=== PATIENT | male | born 1950 | race Caucasian/White ===

== ENCOUNTER 2018-06-05 19:51 | Observation (INO) ==
[2018-06-05 20:28] LABS: Basophils # 0.1 K/mm3 (0-0.2); Basophils % 0.6 % (0.1-2.0); Eosinophils # 0.1 K/mm3 (0.0-0.4); Eosinophils % 1.3 % (0.1-12.0); Hematocrit 45.1 % (42.0-52.0); Hemoglobin 15.1 g/dL (14.1-18.0); Lymphocytes # 1.6 K/mm3 (0.7-4.5); Lymphocytes % 20.2 K/mm3 (10-50); Mean Corpuscular HGB Conc 33.5 g/dL (31.8-35.4); Mean Corpuscular Hemoglobin 31.8 pg (27.0-31.2); Mean Corpuscular Volume 94.7 fl (80-94); Mean Platelet Volume 8.7 fl (7.4-10.4); Monocytes # 0.5 K/mm3 (0.1-1.0); Monocytes % 5.5 % (1.7-9.3); Neutrophils # 5.9 K/mm3 (1.8-7.8); Neutrophils % 72.4 % (37.0-80.0); Platelet Count 218 K/mm3 (142-424); Red Blood Count 4.76 M/mm3 (4.60-6.20); Red Cell Distribution Width 13.1 % (11.5-17.5); White Blood Count 8.1 K/mm3 (4.8-10.8)
[2018-06-05 20:32] LABS: Microscopic, Urine URINE MICROSCOPIC (MICROSCOPIC)
[2018-06-05 20:37] LABS: Appearance,Urine CLEAR (Clear); Blood, Urine Negative (Negative); Color,Urine YELLOW (Yellow); Glucose,Urine (UA) Negative (Negative); Ketones,Urine TRACE (Negative); Leukocyte Esterase,Urine Negative (Negative); Protein,Urine 1+ (Negative); Specific Gravity, Urine 1.025 (1.005-1.030)
[2018-06-05 20:41] LABS: Activated Partial Thrombo Time 28.7 seconds (23.6-34.0); INR 0.93 (0.9-1.1); Prothrombin Time 9.6 seconds (9.4-11.8)
[2018-06-05 20:41] LABS: Bilirubin,Urine Negative (Negative)
[2018-06-05 20:58] LABS: Alanine Aminotransferase 18 U/L (12-78); Albumin Level 3.7 gm/dL (3.4-5.0); Alkaline Phosphatase 140 U/L (46-116); Anion Gap 14.4 mEq/L (5-15); Aspartate Amino Transferase 11 U/L (15-37); Bilirubin,Total 0.7 mg/dL (0.2-1.0); Blood Urea Nitrogen 16 mg/dL (7-18); Calcium 8.9 mg/dL (8.5-10.1); Carbon Dioxide 27 mmol/L (21.0-32.0); Chloride 106 mmol/L (98-107); Creatine Kinase 79 U/L (39-308); Globulin 3.6 gm/dl (1.3-3.2); Glucose 94 mg/dL (74-106); Potassium 4.4 mmoL/L (3.5-5.1); Sodium 143 mmol/L (136-145); Total Protein,Serum 7.3 gm/dL (6.4-8.2)
--- NOTE | 2018-06-05 21:00 | Emergency Department Note ---
ED Disposition Clinical Impression: TIA (transient ischemic attack) Disposition: Admitted as Observation Condition on Discharge: Good - Critical Care Critical Care Time: No Attestation: On 06/05/18, the high probability of a clinically significant, sudden or life threatening deterioration of the following system(s) required my full and direct attention, intervention and personal management. The time I documented below is in addition to time spent performing reported procedures but includes the following listed in this critical care notation. Medical Decision Making - Hai Inquiry Pt receiving controlled substance: No Vital Signs: 06/05/18 19:55 Temperature 98.4 F Temperature Source Oral Pulse Rate [Right Radial] 72 Respiratory Rate 20 Blood Pressure [Right Arm] 175/98 Blood Pressure Mean [Right Arm] 123 02 Sat by Pulse Oximetry 100 - Lab Data Lab results reviewed: Yes: I reviewed the patient's lab results. Lab Results 06/05/18 20:11: WBC 8.1, RBC 4.76, Hgb 15.1, Hct 45.1, MCV 94.7 H, MCH 31.8 H, MCHC 33.5, RDW 13.1, Plt Count 218, MPV 8.7, Neut % (Auto) 72.4, Lymph % (Auto) 20.2, [place] % (Auto) 5.5, Eos % (Auto) 1.3, Baso % (Auto) 0.6, Neut # (Auto) 5.9 , Lymph # (Auto) 1.6, [place] # (Auto) 0.5, Eos # (Auto) 0.1, Baso # (Auto) 0.1 06/05/18 20:11: PT 9.6, INR 0.93, APTT 28.7 06/05/18 20:11: Sodium 143, Potassium 4.4, Chloride 106, Carbon Dioxide 27, Anion Gap 14.4, BUN 16, Creatinine 1.53 H, Estimated Creat Clear 47, Estimated GFR 45 L, Est GFR ( Amer) 55 L, Glucose 94, Calcium 8.9, Total Bilirubin 0.7, AST 11 L, ALT 18, Alkaline Phosphatase 140 H, Total Creatine Kinase 79, CK- MB (CK-2) 0.5, CK-MB (CK-2) Rel Index 0.6, Troponin I < 0.02, Total Protein 7.3 , Albumin 3.7, Globulin 3.6 H, Albumin/Globulin Ratio 1.0 L 06/05/18 20:30: Urine Color Yellow, Urine Appearance Clear, Urine pH 6.0, Ur Specific [place] 1.025, Urine Protein 1+, Urine Glucose (UA) Negative, Urine Ketones Trace, Urine Blood Negative, Urine Nitrate Negative, Urine Bilirubin Negative, Urine Urobilinogen 1.0, Ur Leukocyte Esterase Negative, Urine RBC None , Urine WBC Occasional, Ur Squamous Epith Cells 5-10, Urine Bacteria Trace, Hyaline Casts Occasional, Urine Mucus 4+ Result diagrams: 06/05/18 20:11 06/05/18 20:11 Orders (Tests/Meds): ORDERS Category Date Time Status CT head/brain wo con Stat Cat Scan 06/05/18 20:03 Taken XR chest 2V Stat Exams 06/05/18 20:03 Taken - Radiology Data #1 Image(s): Chest Image Reviewed: Yes I reviewed the patient's radiology image Preliminary Findings: Normal/NAD - CT Data CT Scan: Head Time Received: 21:[address] Reviewed: Yes: I have viewed the radiologist's interpretation Preliminary Findings: Normal/NAD - ECG Data Tracing #1 I reviewed this ECG and interpreted as documented below: Normal Sinus Rhythm: Yes Ischemic changes: non-specific ST-T wave changes Neuro HPI - General Chief Complaint: Dizziness Stated Complaint: Dizzy, left side weak Time Seen by Provider: 06/05/18 20:00 Mode of Arrival: Family Vehicle Source of Information: Patient, Relative, Medical Record Limitations: No Limitations Description of Symptoms (Recalled from ER Triage Doc. by RN): pt states that last night at approx 2130 he suddenly started feeling weak on his left side and then dizzy. pt states he still feels somewhat weak although some symptoms have improved. pt states he is still feeling dizzy. - History of Present Illness HPI Narrative: since yesterday has not felt well with dizzyness but no chest pain or palpitation - has no speech or visual sx but feels sl weak on lt upper more than lt lower - gait ok Onset (ago): day(s) Time: 17:30 Date last observed normal: 06/04/18 Time last observed normal: 17:30 Timing confirmed by: family member Location: left arm, left leg History of same: No Severity: mild Quality: weak Relieving factors: none Exacerbating factors: none On Anticoagulants: No Associated symptoms: vertigo Treatments Prior to Arrival: none - Related Data Home Medications: Home Medications Medication Instructions Recorded Confirmed Buspirone HCl [Buspar 10mg tablet] 10 mg PO BID 06/05/18 06/05/18 Allergies/Adverse Reactions: Allergies Allergy/AdvReac Type Severity Reaction Status Date / Time Penicillins [PENICILLINS] Allergy Unknown Verified 06/05/18 20:02 Sulfa (Sulfonamide Allergy Unknown Verified 06/05/18 20:02 Antibiotics) [SULFA (SULFONAMIDE ANTIBIOTICS)] Stroke Alert/NIH Score - LOC Level of Consciousness: Alert LOC Questions: Answers both correctly LOC Commands: Obeys both correctly - Facial/Visual Best Gaze: Normal Visual: No visual loss Facial Palsy: Normal - Motor Motor Response, Left Arm: No drift/Amputation/Fused Motor Response, Right Arm: No drift/Amputation/Fused Motor Response, Left Leg: No drift/Amputation/Fused Motor Response, Right Leg: No drift/Amputation/Fused - Sensory/Language Limb Ataxia: Absent Sensory: Normal Best Language: No aphasia Dysarthria: Normal speech, Intubated or Barrier present - NIH Score Stroke Risk Score: 0 [facility] History I have reviewed the patient's past medical history: Yes Medical History: Denies:: Cancer, Diabetes Mellitus Type 1, Diabetes Mellitus Type 2, MRSA Amputation: No Fractures: No - Social History Smoking Status: Current every day smoker Alcohol Intake: never - Psychiatric History Expresses thoughts of harming self/others: None Suicide Plan Description: No Plan ROS Obtained: Yes All systems reviewed & no additional complaints - Constitutional Constitutional: Denies fever(s) - Eyes Eyes: Denies change in vision - ENT Ears, Nose, Mouth, and Throat: Denies sore throat - Cardiovascular Cardiovascular: Denies chest pain - Respiratory Respiratory: No cough - Gastrointestinal Gastrointestingal: Denies: abdominal pain - Genitourinary Male Genitourinary: Denies hematuria - Musculoskeletal Musculoskeletal: Denies joint pain, Denies joint swelling - Integumentary/Breasts Skin/Breast: Denies rash - Neurologic Neurologic: Reports dizziness, Denies headache(s), Denies seizure-like activity , Denies tremor(s), Reports weakness Physical Exam - General General appearance: alert, in no apparent distress - Head Head exam: normocephalic - Eye Eye exam: Present: PERRL, EOMI. Absent: scleral icterus - ENT ENT exam: Present: mucous membranes dry - Neck Neck exam: Present: trachea midline - Respiratory Respiratory exam: Present: normal lung sounds bilaterally - Cardiovascular Cardiovascular exam: Present: regular rate, systolic murmur, other (no def bruit ) - Abdominal Exam Abdominal exam: Present: soft - Extremities Exam Extremities exam: Present: full ROM - Neurological Exam Neurological exam: Present: alert, oriented X3, CN II-XII intact. Absent: reflexes normal - Expanded Neurological Exam Patient oriented to: Present: person, place, time Speech: Present: fluid speech Cranial nerves: Normal: EOM function (II, III, IV, ), facial sensation (V), facial palsy (VII), gag reflex (IX), spinal accessory function (XI), tongue deviation (XII) Cerebellar function: Normal: finger to nose Cerebellar function: normal gait Motor strength - LUE: 5/5 Motor strength - RUE: 5/5 Motor strength - LLE: 5/5 Motor strength - RLE: 5/5 DTR: 1+: biceps (L), biceps (R), patellar (L), patellar (R) Coma scale eye opening: Spontaneous Coma scale motor response: Obeys commands Coma scale verbal response: Oriented Coma scale total: 15 - Psychiatric Psychiatric exam: Present: normal affect - Skin Skin exam: Absent: rash
[2018-06-05 21:08] LABS: Bacteria,Urine Trace /lpf; Hyaline Casts,Urine Occasional #/lpf (0); Mucus,Urine 4+ /lpf; WBC,Urine Occasional #/hpf (0-3)
[2018-06-06 04:16] LABS: Basophils % 0.6 % (0.1-2.0); Eosinophils # 0.2 K/mm3 (0.0-0.4); Eosinophils % 2.7 % (0.1-12.0); Hematocrit 40.1 % (42.0-52.0); Lymphocytes # 2.1 K/mm3 (0.7-4.5); Lymphocytes % 30.9 K/mm3 (10-50); Mean Corpuscular Hemoglobin 31.1 pg (27.0-31.2); Mean Corpuscular Volume 94.3 fl (80-94); Mean Platelet Volume 10.1 fl (7.4-10.4); Monocytes # 0.5 K/mm3 (0.1-1.0); Neutrophils % 58.8 % (37.0-80.0); Platelet Count 212 K/mm3 (142-424); Red Blood Count 4.25 M/mm3 (4.60-6.20); Red Cell Distribution Width 13.2 % (11.5-17.5); White Blood Count 6.7 K/mm3 (4.8-10.8)
[2018-06-06 04:27] LABS: Anion Gap 8.1 mEq/L (5-15); Calcium 8.3 mg/dL (8.5-10.1); Chol/HDL Ratio 4.3 (1-3.5); Potassium 4.1 mmoL/L (3.5-5.1)
[2018-06-06 04:45] LABS: Hemoglobin 13.3 g/dL (14.1-18.0)
--- NOTE | 2018-06-06 07:14 | Pharmacy Consult Notes ---
[facility] Pharmacy VTE Monitoring - Patient Demographics Admission date: 06/05/18 Report Date: 06/06/18 Time: 07:14 Allergies/Adverse Reactions: Patient Allergies Penicillins [PENICILLINS] Allergy (Unknown, Verified 06/05/18 20:02) Sulfa (Sulfonamide Antibiotics) [SULFA (SULFONAMIDE ANTIBIOTICS)] Allergy ( Unknown, Verified 06/05/18 20:02) Height: 1.7 m Weight: 67.585 kg Patient Problems: Current Active Problems TIA (transient ischemic attack) (Acute) - VTE Risk Labs: VTE Related Lab Results Hgb 13.3 g/dL (14.1-18.0) L D 06/06/18 04:05 Hct 40.1 % (42.0-52.0) L 06/06/18 04:05 Plt Count 212 K/mm3 (142-424) 06/06/18 04:05 PT 9.6 seconds (9.4-11.8) 06/05/18 20:11 INR 0.93 (0.9-1.1) 06/05/18 20:11 APTT 28.7 seconds (23.6-34.0) 06/05/18 20:11 BUN 20 mg/dL (7-18) H 06/06/18 04:05 Creatinine 1.36 mg/dL (0.70-1.30) H 06/06/18 04:05 Estimated Creat Clear 49 mL/min (0-300) 06/06/18 04:05 Was VTE Risk Assessment Performed: Yes VTE Score: 1 VTE Risk Level: Very Low Risk - Prophylaxis VTE Prophylaxis Ordered?: Yes Types of VTE Prophylaxis: TEDS Knee High Location of Applied Device: Bilateral Lower Extremeties
--- NOTE | 2018-06-06 07:25 | H&P/Discharge Summary ---
General - General Admission date:: 06/05/18 Discharge date: 06/06/18 *Admission Date: 06/05/18 *Chief complaint: Left arm and leg weakness *History of present illness: 67-year-old male with medical history of bowel obstruction and chronic kidney disease presented to the emergency department not quite 24 hours after experiencing episodes of dizziness with vomiting and left arm and leg weakness. Patient did not have any difficulty speaking. Apparently his symptoms had mostly resolved by the time he decided to present to the emergency department. He was admitted for further observation and workup. He tells me this morning his symptoms have resolved and he denies any left arm or leg weakness. He denies dizziness. He has been able to ambulate without difficulties. [facility] History Medical History: Denies:: Cancer, Diabetes Mellitus Type 1, Diabetes Mellitus Type 2, MRSA Other Surgeries: Yes: Colon Resection (IN 2017) Amputation: No Fractures: No - *Social History Educational Level: Completed High School Smoking Status: Current every day smoker Tobacco Type: cigarettes # Packs/Day (cigarettes): 1 #Yrs smoked (if former smoker): 50 Alcohol Intake: never Occupational Status: retired Housing: house Household Members: spouse - Psychiatric History Expresses thoughts of harming self/others: None Suicide Plan Description: No Plan *Family Hx:: Heart Attack Review of Systems - Review of Systems Review of systems:: pertinent systems reviewed and negative unless documented below - Constitutional Denies body ache(s), Denies chills - Eyes Denies blurry vision - ENT Denies abnormal hearing - *Cardiovascular Denies chest pain - *Respiratory Denies chest congestion, Denies cough - *Gastrointestinal Reports vomiting - *Genitourinary Denies difficulty urinating - *Musculoskeletal Reports muscle weakness, Denies joint pain - *Neurologic Reports dizziness, Reports weakness, Denies headache(s), Denies seizure-like activity, Denies tremor(s) Exam Vital signs and Labs for Last 24 Hours: Temp Pulse Resp BP Pulse Ox 98.1 F 56 L 16 149/84 93 L 06/06/18 04:53 06/06/18 04:53 06/06/18 04:53 06/06/18 04:53 06/06/18 04:53 Laboratory Results - last 24 hr 06/05/18 20:11: WBC 8.1, RBC 4.76, Hgb 15.1, Hct 45.1, MCV 94.7 H, MCH 31.8 H, MCHC 33.5, RDW 13.1, Plt Count 218, MPV 8.7, Neut % (Auto) 72.4, Lymph % (Auto) 20.2, [place] % (Auto) 5.5, Eos % (Auto) 1.3, Baso % (Auto) 0.6, Neut # (Auto) 5.9 , Lymph # (Auto) 1.6, [place] # (Auto) 0.5, Eos # (Auto) 0.1, Baso # (Auto) 0.1 06/05/18 20:11: PT 9.6, INR 0.93, APTT 28.7 06/05/18 20:11: Sodium 143, Potassium 4.4, Chloride 106, Carbon Dioxide 27, Anion Gap 14.4, BUN 16, Creatinine 1.53 H, Estimated Creat Clear 47, Estimated GFR 45 L, Est GFR ( Amer) 55 L, Glucose 94, Calcium 8.9, Total Bilirubin 0.7, AST 11 L, ALT 18, Alkaline Phosphatase 140 H, Total Creatine Kinase 79, CK- MB (CK-2) 0.5, CK-MB (CK-2) Rel Index 0.6, Troponin I < 0.02, Total Protein 7.3 , Albumin 3.7, Globulin 3.6 H, Albumin/Globulin Ratio 1.0 L 06/05/18 20:30: Urine Color Yellow, Urine Appearance Clear, Urine pH 6.0, Ur Specific [place] 1.025, Urine Protein 1+, Urine Glucose (UA) Negative, Urine Ketones Trace, Urine Blood Negative, Urine Nitrate Negative, Urine Bilirubin Negative, Urine Urobilinogen 1.0, Ur Leukocyte Esterase Negative, Urine RBC None , Urine WBC Occasional, Ur Squamous Epith Cells 5-10, Urine Bacteria Trace, Hyaline Casts Occasional, Urine Mucus 4+ 06/05/18 22:09: Troponin I < 0.02 06/06/18 01:00: Troponin I < 0.02 06/06/18 04:05: Troponin I < 0.02 06/06/18 04:05: WBC 6.7, RBC 4.25 L, Hgb 13.3 L D, Hct 40.1 L, MCV 94.3 H, MCH 31.1, MCHC 33.0, RDW 13.2, Plt Count 212, MPV 10.1, Neut % (Auto) 58.8, Lymph % (Auto) 30.9, [place] % (Auto) 7.0, Eos % (Auto) 2.7, Baso % (Auto) 0.6, Neut # ( Auto) 4.0, Lymph # (Auto) 2.1, [place] # (Auto) 0.5, Eos # (Auto) 0.2, Baso # (Auto ) 0.0 06/06/18 04:05: Sodium 141, Potassium 4.1, Chloride 109 H, Carbon Dioxide 28, Anion Gap 8.1, BUN 20 H, Creatinine 1.36 H, Estimated Creat Clear 49, Estimated GFR 52 L, Est GFR ( Amer) 63, Glucose 85, Calcium 8.3 L, Magnesium 2.2, Triglycerides 180, Cholesterol 195, LDL Cholesterol 114, VLDL Cholesterol 36, HDL Cholesterol 45, Cholesterol/HDL Ratio 4.3 H I & O for Last 24 hours: Intake & Output 06/03/18 06/04/18 06/05/18 06/06/18 11:59 11:59 11:59 11:59 Intake Total 537 / 537 Balance 537 / 537 Weight 149 lb Hospital Course Hospital Course: Patient was admitted for observation. On the morning of the he underwent echocardiogram and carotid Dopplers. Preliminary report revealed normal ejection fraction without any left ventricular thrombus and less than 50% stenosis of the carotids bilaterally. On exam patient had questionable weakness at the left wrist with flexion and extension but otherwise normal neurologic exam. Heart rate was regular. As patient's symptoms had resolved and workup was complete he was discharged home. Patient was aspirin 81 mg daily. Amlodipine 5 mg will be added to his regimen. Patient will follow-up in my office on June 15 at 3:30 Results Labs on day of discharge: Labs from last 24 hours 06/06/18 06/06/18 06/06/18 04:05 04:05 04:05 WBC 6.7 RBC 4.25 L Hgb 13.3 L D Hct 40.1 L MCV 94.3 H MCH 31.1 MCHC 33.0 RDW 13.2 Plt Count 212 MPV 10.1 Neut % (Auto) 58.8 Lymph % (Auto) 30.9 [place] % (Auto) 7.0 Eos % (Auto) 2.7 Baso % (Auto) 0.6 Neut # (Auto) 4.0 Lymph # (Auto) 2.1 [place] # (Auto) 0.5 Eos # (Auto) 0.2 Baso # (Auto) 0.0 PT INR APTT Sodium 141 Potassium 4.1 Chloride 109 H Carbon Dioxide 28 Anion Gap 8.1 BUN 20 H Creatinine 1.36 H Estimated Creat Clear 49 Estimated GFR 52 L Est GFR ( Amer) 63 Glucose 85 Calcium 8.3 L Magnesium 2.2 Total Bilirubin AST ALT Alkaline Phosphatase Total Creatine Kinase CK-MB (CK-2) CK-MB (CK-2) Rel Index Troponin I < 0.02 Total Protein Albumin Globulin Albumin/Globulin Ratio Triglycerides 180 Cholesterol 195 LDL Cholesterol 114 VLDL Cholesterol 36 HDL Cholesterol 45 Cholesterol/HDL Ratio 4.3 H Urine Color Urine Appearance Urine pH Ur Specific [place] Urine Protein Urine Glucose (UA) Urine Ketones Urine Blood Urine Nitrate Urine Bilirubin Urine Urobilinogen Ur Leukocyte Esterase Urine RBC Urine WBC Ur Squamous Epith Cells Urine Bacteria Hyaline Casts Urine Mucus 06/06/18 06/05/18 06/05/18 01:00 22:09 20:30 WBC RBC Hgb Hct MCV MCH MCHC RDW Plt Count MPV Neut % (Auto) Lymph % (Auto) [place] % (Auto) Eos % (Auto) Baso % (Auto) Neut # (Auto) Lymph # (Auto) [place] # (Auto) Eos # (Auto) Baso # (Auto) PT INR APTT Sodium Potassium Chloride Carbon Dioxide Anion Gap BUN Creatinine Estimated Creat Clear Estimated GFR Est GFR ( Amer) Glucose Calcium Magnesium Total Bilirubin AST ALT Alkaline Phosphatase Total Creatine Kinase CK-MB (CK-2) CK-MB (CK-2) Rel Index Troponin I < 0.02 < 0.02 Total Protein Albumin Globulin Albumin/Globulin Ratio Triglycerides Cholesterol LDL Cholesterol VLDL Cholesterol HDL Cholesterol Cholesterol/HDL Ratio Urine Color Yellow Urine Appearance Clear Urine pH 6.0 Ur Specific [place] 1.025 Urine Protein 1+ Urine Glucose (UA) Negative Urine Ketones Trace Urine Blood Negative Urine Nitrate Negative Urine Bilirubin Negative Urine Urobilinogen 1.0 Ur Leukocyte Esterase Negative Urine RBC None Urine WBC Occasional Ur Squamous Epith Cells 5-10 Urine Bacteria Trace Hyaline Casts Occasional Urine Mucus 4+ 06/05/18 06/05/18 06/05/18 20:11 20:11 20:11 WBC 8.1 RBC 4.76 Hgb 15.1 Hct 45.1 MCV 94.7 H MCH 31.8 H MCHC 33.5 RDW 13.1 Plt Count 218 MPV 8.7 Neut % (Auto) 72.4 Lymph % (Auto) 20.2 [place] % (Auto) 5.5 Eos % (Auto) 1.3 Baso % (Auto) 0.6 Neut # (Auto) 5.9 Lymph # (Auto) 1.6 [place] # (Auto) 0.5 Eos # (Auto) 0.1 Baso # (Auto) 0.1 PT 9.6 INR 0.93 APTT 28.7 Sodium 143 Potassium 4.4 Chloride 106 Carbon Dioxide 27 Anion Gap 14.4 BUN 16 Creatinine 1.53 H Estimated Creat Clear 47 Estimated GFR 45 L Est GFR ( Amer) 55 L Glucose 94 Calcium 8.9 Magnesium Total Bilirubin 0.7 AST 11 L ALT 18 Alkaline Phosphatase 140 H Total Creatine Kinase 79 CK-MB (CK-2) 0.5 CK-MB (CK-2) Rel Index 0.6 Troponin I < 0.02 Total Protein 7.3 Albumin 3.7 Globulin 3.6 H Albumin/Globulin Ratio 1.0 L Triglycerides Cholesterol LDL Cholesterol VLDL Cholesterol HDL Cholesterol Cholesterol/HDL Ratio Urine Color Urine Appearance Urine pH Ur Specific [place] Urine Protein Urine Glucose (UA) Urine Ketones Urine Blood Urine Nitrate Urine Bilirubin Urine Urobilinogen Ur Leukocyte Esterase Urine RBC Urine WBC Ur Squamous Epith Cells Urine Bacteria Hyaline Casts Urine Mucus DS: Diagnosis - Discharge Diagnosis (1) TIA (transient ischemic attack) Status: Acute Discharge Medications Discharge Medications: Home Medications Medication Instructions Recorded Confirmed Type Buspirone HCl [Buspar 10mg tablet] 10 mg PO BID 06/05/18 06/05/18 History Disposition Disposition: Home, Self-Care
--- NOTE | 2018-06-06 07:46 | Carotid Imaging Report ---
"Cerebrovascular Exam Indications: TIA 434.91. IMPRESSIONS 1. The bilateral vertebral arteries are patent with normal antegrade flow. 2. Study suggests 20-49% stenosis involving the right internal carotid artery and the left internal carotid artery, lower end of the scale. History: Left-sided weakness. Risk factors: Current tobacco use. Carotid duplex study. Complete study and Doppler flow study including spectral analysis, color and taylor scale imaging. Height: Height: 170.2cm. Height: 67in. Weight: Weight: 72.6kg. Weight: 159.7lb. Body mass index: BMI: 25.1kg/m^2. Body surface area: BSA: 1.86m^2. Location: Vascular laboratory. Patient status: Outpatient. Tables: Arterial flow: + +--------+--------+ |Location |V sys |V ed | + +--------+--------+ |Right CCA - proximal|120cm/s |28.3cm/s| + +--------+--------+ |Right CCA - distal |82.5cm/s|22cm/s | + +--------+--------+ |Right ECA |95.9cm/s|--------| + +--------+--------+ |Right ICA - proximal|50.6cm/s|12.7cm/s| + +--------+--------+ |Right ICA - mid |55.9cm/s|21.8cm/s| + +--------+--------+ |Right ICA - distal |61.1cm/s|22.3cm/s| + +--------+--------+ |Right vertebral |59cm/s |--------| + +--------+--------+ |Left CCA - proximal |109cm/s |24.8cm/s| + +--------+--------+ |Left CCA - distal |78.3cm/s|21.5cm/s| + +--------+--------+ |Left ECA |91.5cm/s|--------| + +--------+--------+ |Left ICA - proximal |45.6cm/s|13.4cm/s| + +--------+--------+ |Left ICA - mid |63.3cm/s|22.4cm/s| + +--------+--------+ |Left ICA - distal |82.1cm/s|33.4cm/s| + +--------+--------+ |Left vertebral |50.7cm/s|--------| + +--------+--------+ Velocity ratios: + + + + + + | |Right, V sys|Right, V ed|Left, V sys|Left, V ed| + + + + + + |Max ICA/dist CCA|0.74 |1.01 |1.05 |1.55 | + + + + + + (Report amended ) Electronically signed by: Rafa Taylor [id number]"
--- NOTE | 2018-06-07 14:44 | Cardiology Report ---
PROCEDURE: 2-D M-mode and color Doppler study INDICATIONS FOR THE TEST: Chest pain COPD Heart Murmur Tobacco Smoking+ Palpitations Fatigue Syncope Edema Hypertension Diabetes Mellitus Rheumatic Fever SOB SANCHEZ Obesity Hyperlipidemia Family History HD Additional History DIZZINESS, LEFT SIDED WEAKNESS PATIENT INFORMATION HEIGHT: 67 WEIGHT:160 GENDER: Male B/P:175/98 2-D/M-MODE INTERPRETATION: 2-D MEASUREMENTS OBSERVED VALUES IN CMS Right Ventricular Dimension (RVDd) 2.2 Interventricular Septum (Thickness)(IVsd) 1.2 Left Ventricular Internal Dimensions(LVIDd) 4.4 Left Ventricular Posterior Wall (Thickness)(LVPWd) 1.0 Aortic Root 3.7 Aortic Cusp Separation 1.9 Left Atrial Dimensions (LAD) 3.5 2D 1. Left atrium is mildly enlarged, left ventricle is normal size, mild concentric left ventricular hypertrophy, visually estimated ejection fraction 55% with no obvious regional wall motion abnormality. 2. The right atrium and right ventricle are normal size and contractility. 3. The aortic valve is minimally thickened and fibrosed. 4. The mitral and tricuspid valve leaflets are minimally thickened. 5. The pulmonic valve is poorly visualized. 6. No significant pericardial effusion noted. DOPPLER INTERROGATION: Doppler interrogation of the aortic, mitral and tricuspid valvular presence of mild mitral and tricuspid regurgitation, tricuspid and jet velocity insufficient for calculation of the right ventricular systolic pressure, grade 1 diastolic dysfunction seen with tissue Doppler evidence of raised left atrial pressure. CONCLUSION: 1. Mildly enlarged left atrium, normal left ventricular size, mild concentric left ventricular hypertrophy, visually estimated ejection fraction 55% with no obvious regional wall motion abnormality, grade 1 diastolic dysfunction seen with tissue Doppler evidence of raised left atrial pressure. 2. Mild mitral and tricuspid regurgitation 3. No significant pericardial effusion noted.
== END 2018-06-06 07:55 | disposition home or self-care (01) ==
LOC: 2ND 19:51 → ER 19:51 → 2ND 22:17
PROVIDERS: ADMIT Emergency Medicine; ATTEND Family Medicine

== ENCOUNTER → 2018-10-09 09:12 | Outpatient (CLI) | payer OTHER, SELFPAY ==
--- NOTE | 2018-10-09 09:18 | XR_ITS ---
XR foot RT min 3V HISTORY: ITS.REASON: RIGHT FOOT PAIN ORDERING PHYSICIAN: Byron Carter MD PATIENT AGE: 68 years COMPARISON: None FINDINGS: There are severe osteoarthritic changes of the first metatarsal phalangeal joint with loss of joint space, osteosclerosis, osteophyte formation, and subarticular cystic changes. No acute fracture or dislocation. No lytic or blastic change. 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
== END ==
PROVIDERS: PCP Family Medicine; Visit Provider Family Medicine
DX: M79.671 Pain in right foot (principal)
CPT/HCPCS: 73630

== ENCOUNTER 2019-03-01 19:22 | Emergency (ER) | payer OTHER, MEDICARE, SELFPAY ==
[2019-03-01 19:42] VITALS: BP 173/95; PULSE 64; RESP 19; TEMP 36.7; O2SAT 97; BMI 23.7
--- NOTE | 2019-03-01 19:56 | HMH.EDUTC ---
[facility] [place] Disposition Clinical Impression: Contact dermatitis Qualifiers: Contact dermatitis type: allergic Contact dermatitis trigger: unspecified trigger Qualified Code(s): L23.9 - Allergic contact dermatitis, unspecified cause Disposition: Home, Self-Care Condition on Discharge: Good Instructions: DI for Contact Dermatitis Prescriptions: Triamcinolone Acetonide [Kenalog 0.1% cream 30gm tube] 1 applic TOPICAL TID PRN 10 Days #30 cream..g. PRN Reason: Itching methylPREDNISolone [Medrol] 4 mg PO DIRECTED 6 Days #1 tab.ds.pk Referrals: Byron Carter MD [Primary Care Provider] - Time of Disposition: 20:01 Medical Decision Making - Hai Inquiry Pt receiving controlled substance: No Vital Signs: 03/01/19 19:42 Temperature 98.1 F Temperature Source Oral Pulse Rate [Right Brachial] 64 Respiratory Rate 19 Blood Pressure [Right Arm] 173/95 H Blood Pressure Mean [Right Arm] 121 Blood Pressure Source [Right Arm] Automatic Cuff Blood Pressure Position [Right Arm] Sitting 02 Sat by Pulse Oximetry 97 Oxygen Delivery Method Room Air Orders (Tests/Meds): ED MEDICATIONS Discontinued Medications Generic Name Dose Route Start Last Admin Trade Name Freq PRN Reason Stop Dose Admin Dexamethasone Sodium Phosphate 4 mg 03/01/19 19:50 Decadron 4mg/Ml 1ml Vial IM 03/01/19 19:51 ONCE ONE Diphenhydramine HCl 25 mg 03/01/19 19:50 Benadryl 50mg/1ml Vial IM 03/01/19 19:51 ONCE ONE Methylprednisolone Acetate 80 mg 03/01/19 19:50 Depo-Medrol 80mg/Ml Vial IM 03/01/19 19:51 ONCE ONE [facility] [place] HPI - General Stated complaint: rash Time Seen by Provider: 03/01/19 19:40 Mode of Arrival: Family Vehicle Source of Information: Patient Limitations: No Limitations Description of Symptoms (Recalled from Triage Doc. by RN): C/O ITCHY RASH ALL OVER SINCE SAT. HAS BEEN SEE BY PCP HEENT Symptoms (Recalled from RN notes): No Resp Symptoms (Recalled from RN notes): No Skin Symptoms (Recalled from RN notes): Yes MS Symptoms (Recalled from RN notes): No Functional Status (Recalled from RN notes): N/A - History of Present Illness Provider Complaint: Itchy rash to left wrist X 1 week. Seen by PCP, who prescribed Caladryl, but that seems to have made it worse. Took Benadryl and applied hydrocortisone last night with minimal relief. Onset (ago): week(s) (1) Location: left, upper extremity Relieving factors: none Exacerbating factors: none Associated symptoms: rash Treatments prior to arrival: other (Benadryl, HC) - Related Data Home Medications Medication Instructions Recorded Confirmed Buspirone HCl [Buspar 10mg tablet] 10 mg PO BID 06/05/18 10/12/18 Aspirin [Aspir 81] 81 mg PO DAILY 10/12/18 10/12/18 Atorvastatin Calcium [Atorvastatin 10 mg PO DAILY 10/12/18 10/12/18 10mg Tab] Previous Rx's Medication Instructions Recorded Amlodipine Besylate [Norvasc 10mg 10 mg PO DAILY #10 tablet 10/12/18 tablet] Triamcinolone Acetonide [Kenalog 1 applic TOPICAL TID PRN 10 Days 03/01/19 0.1% cream 30gm tube] #30 cream..g. methylPREDNISolone [Medrol] 4 mg PO DIRECTED 6 Days #1 03/01/19 tab.ds.pk Allergies Allergy/AdvReac Type Severity Reaction Status Date / Time Penicillins [PENICILLINS] Allergy Unknown Verified 10/12/18 22:10 Sulfa (Sulfonamide Allergy Unknown Verified 10/12/18 22:10 Antibiotics) [SULFA (SULFONAMIDE ANTIBIOTICS)] - Worker's Comp Is this a Worker's Comp case?: No H History - Hepatitis A Screen Drug use history?: No High risk sexual behaviors?: No History of sexually transmitted infection?: No Currently employed?: No Childcare worker?: No Do you have indoor plumbing?: Yes Do you have electricity?: Yes Attestation statement:: This patient has been screened for Hepatitis A risk factors. I have reviewed the patient's past medical history: Yes Medical History: Denies:: Cancer, Diabetes Mellitus Type 1, Diabetes Mellitus Type 2
--- NOTE | 2019-03-01 20:01 | ED_ITS ---
[facility] [place] Disposition Clinical Impression: Contact dermatitis Qualifiers: Contact dermatitis type: allergic Contact dermatitis trigger: unspecified trigger Qualified Code(s): L23.9 - Allergic contact dermatitis, unspecified cause Disposition: Home, Self-Care Condition on Discharge: Good Instructions: DI for Contact Dermatitis Prescriptions: Triamcinolone Acetonide [Kenalog 0.1% cream 30gm tube] 1 applic TOPICAL TID PRN 10 Days #30 cream..g. PRN Reason: Itching methylPREDNISolone [Medrol] 4 mg PO DIRECTED 6 Days #1 tab.ds.pk Referrals: Byron Carter MD [Primary Care Provider] - Time of Disposition: 20:01 Medical Decision Making - Hai Inquiry Pt receiving controlled substance: No Vital Signs: 03/01/19 19:42 Temperature 98.1 F Temperature Source Oral Pulse Rate [Right Brachial] 64 Respiratory Rate 19 Blood Pressure [Right Arm] 173/95 H Blood Pressure Mean [Right Arm] 121 Blood Pressure Source [Right Arm] Automatic Cuff Blood Pressure Position [Right Arm] Sitting 02 Sat by Pulse Oximetry 97 Oxygen Delivery Method Room Air Orders (Tests/Meds): ED MEDICATIONS Discontinued Medications Generic Name Dose Route Start Last Admin Trade Name Freq PRN Reason Stop Dose Admin Dexamethasone Sodium Phosphate 4 mg 03/01/19 19:50 Decadron 4mg/Ml 1ml Vial IM 03/01/19 19:51 ONCE ONE Diphenhydramine HCl 25 mg 03/01/19 19:50 Benadryl 50mg/1ml Vial IM 03/01/19 19:51 ONCE ONE Methylprednisolone Acetate 80 mg 03/01/19 19:50 Depo-Medrol 80mg/Ml Vial IM 03/01/19 19:51 ONCE ONE [facility] [place] HPI - General Stated complaint: rash Time Seen by Provider: 03/01/19 19:40 Mode of Arrival: Family Vehicle Source of Information: Patient Limitations: No Limitations Description of Symptoms (Recalled from Triage Doc. by RN): C/O ITCHY RASH ALL OVER SINCE SAT. HAS BEEN SEE BY PCP HEENT Symptoms (Recalled from RN notes): No Resp Symptoms (Recalled from RN notes): No Skin Symptoms (Recalled from RN notes): Yes MS Symptoms (Recalled from RN notes): No Functional Status (Recalled from RN notes): N/A - History of Present Illness Provider Complaint: Itchy rash to left wrist X 1 week. Seen by PCP, who prescribed Caladryl, but that seems to have made it worse. Took Benadryl and applied hydrocortisone last night with minimal relief. Onset (ago): week(s) (1) Location: left, upper extremity Relieving factors: none Exacerbating factors: none Associated symptoms: rash Treatments prior to arrival: other (Benadryl, HC) - Related Data Home Medications Medication Instructions Recorded Confirmed Buspirone HCl [Buspar 10mg tablet] 10 mg PO BID 06/05/18 10/12/18 Aspirin [Aspir 81] 81 mg PO DAILY 10/12/18 10/12/18 Atorvastatin Calcium [Atorvastatin 10 mg PO DAILY 10/12/18 10/12/18 10mg Tab] Previous Rx's Medication Instructions Recorded Amlodipine Besylate [Norvasc 10mg 10 mg PO DAILY #10 tablet 10/12/18 tablet] Triamcinolone Acetonide [Kenalog 1 applic TOPICAL TID PRN 10 Days 03/01/19 0.1% cream 30gm tube] #30 cream..g. methylPREDNISolone [Medrol] 4 mg PO DIRECTED 6 Day
[2019-03-01 20:03] VITALS: BP 173/95; PULSE 64; RESP 19; TEMP 36.7; O2SAT 97
== END 2019-03-01 20:13 | disposition home or self-care (01) ==
PROVIDERS: Emergency Provider Physician Assistant; PCP Family Medicine
DX: L23.9 Allergic contact dermatitis, unspecified cause (principal); F17.210 Nicotine dependence, cigarettes, uncomplicated; Z88.0 Allergy status to penicillin; Z88.2 Allergy status to sulfonamides
CPT/HCPCS: 96372; 99201; J1040

== ENCOUNTER 2019-07-21 18:08 | Observation (INO) ==
--- NOTE | 2019-07-21 18:21 | Emergency Department Note ---
ED Disposition Clinical Impression: Chest pain Qualifiers: Chest pain type: precordial pain Qualified Code(s): R07.2 - Precordial pain Disposition: Admitted as Observation Condition on Discharge: Good Referrals: Byron Carter MD [Primary Care Provider] - - Critical Care Critical Care Time: No Attestation: On 07/21/19, the high probability of a clinically significant, sudden or life threatening deterioration of the following system(s) required my full and direct attention, intervention and personal management. The time I documented below is in addition to time spent performing reported procedures but includes the following listed in this critical care notation. Medical Decision Making - Medical Records Medical records reviewed: Yes: I reviewed the patient's medical records. - Hai Inquiry Pt receiving controlled substance: No Vital Signs: 07/21/19 18:08 07/21/19 18:28 07/21/19 19:34 Temperature 98.0 F Temperature Source Oral Pulse Rate [Left Radial] 63 62 62 Respiratory Rate 18 18 Blood Pressure [Right Arm] 165/95 H 129/75 152/79 H Blood Pressure Mean [Right Arm] 118 93 103 Blood Pressure Source [Right Arm] Automatic Cuff Automatic Cuff Blood Pressure Position [Right Arm] Sitting Supine 02 Sat by Pulse Oximetry 97 95 95 Oxygen Delivery Method Room Air Room Air - Lab Data Lab results reviewed: Yes: I reviewed the patient's lab results. Lab Results 07/21/19 18:10: WBC 9.8, RBC 4.44 L, Hgb 14.7, Hct 43.1, MCV 97.2 H, MCH 33.1 H, MCHC 34.0, RDW 13.0, Plt Count 217, MPV 9.1, Neut % (Auto) 69.1, Lymph % (Auto) 24.4, [place] % (Auto) 5.1, Eos % (Auto) 1.1, Baso % (Auto) 0.4, Neut # (Auto) 6.7, Lymph # (Auto) 2.4, [place] # (Auto) 0.5, Eos # (Auto) 0.1, Baso # (Auto) 0.0 07/21/19 18:10: Sodium 143, Potassium 4.0, Chloride 105, Carbon Dioxide 29, Anion Gap 13.0, BUN 23 H, Creatinine 1.71 H, Estimated Creat Clear 36, Estimated GFR 40 L, Est GFR ( Amer) 48 L, Glucose 80, Calcium 9.3, Troponin I < 0.02 07/21/19 18:10: D-Dimer < 100 07/21/19 18:10: Lipase 179 Result diagrams: 07/21/19 18:10 07/21/19 18:10 Orders (Tests/Meds): ED MEDICATIONS Generic Name Dose Route Start Last Admin Trade Name Freq PRN Reason Stop Dose Admin Sodium Chloride 500 mls @ 500 mls/hr 07/21/19 19:00 Sod Chlor 0.9% 500ml Bag IV 08/20/19 18:59 .Q1H JAMIA Discontinued Medications Generic Name Dose Route Start Last Admin Trade Name Freq PRN Reason Stop Dose Admin Aspirin 324 mg 07/21/19 18:14 07/21/19 18:16 Aspirin 81mg Chewable Tablet PO 07/21/19 18:15 324 mg ONCE ONE Administration ORDERS Category Date Time Status Chest XR 2 view (NOT portable) [XR chest 2V] Stat Exams 07/21/19 18:10 Taken ECG Request by /Stew Stat Y 07/21/19 18:10 Ordered - Radiology Data #1 Image(s): Chest Image Reviewed: Yes I reviewed the patient's radiology results Preliminary Findings: Normal/NAD - ECG Data Tracing #1 I reviewed this ECG and interpreted as documented below: Normal Sinus Rhythm: Yes (no stemi) Medical Decision Narrative: pt pain free, admit d/w Dr Heard General Adult HPI - General Chief complaint: Chest Pain Stated complaint: chest pain Time Seen by Provider: 07/21/19 18:19 Mode of Arrival: Ambulatory Source of Information: Patient Limitations: No Limitations Description of Symptoms (Recalled from ER Triage Doc. by RN): Chest pain with left arm numbness, lightheaded, diaphoretic, nausea - History of Present Illness HPI narrative: mild off and on tight chest pain today, gone now, no injury, hx smoking, no MN, hx htn, nonrad - Related Data Home Medications Medication Instructions Recorded Confirmed Buspirone HCl [Buspar 10mg 10 mg PO BID 06/05/18 07/21/19 tablet] Atorvastatin Calcium [Atorvastatin 10 mg PO DAILY 10/12/18 07/21/19 10mg Tab] Amlodipine Besylate [Norvasc 10mg 10 mg PO DAILY 07/21/19 07/21/19 tablet] Prazosin HCl [Minipres 1mg capsule] 1 mg PO DAILY 07/21/19 07/21/19 Allergies Allergy/AdvReac Type Severity Reaction Status Date / Time Penicillins [PENICILLINS] Allergy Unknown Verified 10/12/18 22:10 Sulfa (Sulfonamide Allergy Unknown Verified 10/12/18 22:10 Antibiotics) [SULFA (SULFONAMIDE ANTIBIOTICS)] [facility] History - Hepatitis A Screen Drug use history?: No High risk sexual behaviors?: No History of sexually transmitted infection?: No Currently employed?: No Childcare worker?: No Do you have indoor plumbing?: Yes Do you have electricity?: Yes Attestation statement:: This patient has been screened for Hepatitis A risk factors. Medical History: Denies:: Cancer, Diabetes Mellitus Type 1, Diabetes Mellitus Type 2, MRSA Other Surgeries: Yes: Colon Resection (IN 2017) Amputation: No Fractures: No - Social History Educational Level: Completed High School Smoking Status: Current every day smoker Tobacco Type: cigarettes # Packs/Day (cigarettes): 1 #Yrs smoked (if former smoker): 50 Alcohol Intake: never Occupational Status: retired Housing: house Household Members: spouse Family Hx:: Heart Attack ROS Obtained: Yes Systems reviewed as appropriate & no additional complaints - Constitutional Constitutional: Denies fever(s) - Eyes Eyes: Denies change in vision - ENT Ears, Nose, Mouth, and Throat: Denies difficulty swallowing - Cardiovascular Cardiovascular: Reports chest pain - Respiratory Respiratory: No dyspnea - Gastrointestinal Gastrointestingal: Denies: abdominal pain - Musculoskeletal Musculoskeletal: Denies neck pain - Integumentary/Breasts Skin/Breast: Denies rash - Neurologic Neurologic: Denies headache(s) Physical Exam - General General appearance: alert - Head Head exam: atraumatic - Eye Eye exam: Present: normal appearance - ENT ENT exam: Present: mucous membranes moist - Neck Neck exam: Present: normal inspection - Chest Chest inspection: Present: normal inspection - Respiratory Respiratory exam: Present: normal lung sounds bilaterally - Cardiovascular Cardiovascular exam: Present: regular rate, normal rhythm - Abdominal Exam Abdominal exam: Present: soft. Absent: tenderness - Extremities Exam Extremities exam: Present: full ROM - Neurological Exam Neurological exam: Present: alert, oriented X3 - Psychiatric Psychiatric exam: Present: normal affect, normal mood - Skin Skin exam: Present: warm, dry
[2019-07-21 18:23] LABS: Basophils % 0.4 % (0.1-2.0); Eosinophils # 0.1 K/mm3 (0.0-0.4); Eosinophils % 1.1 % (0.1-12.0); Hematocrit 43.1 % (42.0-52.0); Hemoglobin 14.7 g/dL (14.1-18.0); Lymphocytes # 2.4 K/mm3 (0.7-4.5); Lymphocytes % 24.4 % (10-50); Mean Corpuscular Volume 97.2 fl (80-94); Mean Platelet Volume 9.1 fl (7.4-10.4); Monocytes # 0.5 K/mm3 (0.1-1.0); Monocytes % 5.1 % (1.7-9.3); Neutrophils # 6.7 K/mm3 (1.8-7.8); Neutrophils % 69.1 % (37.0-80.0); Platelet Count 217 K/mm3 (142-424); Red Blood Count 4.44 M/mm3 (4.60-6.20); White Blood Count 9.8 K/mm3 (4.8-10.8)
[2019-07-21 18:40] LABS: Blood Urea Nitrogen 23 mg/dL (7-18); Calcium 9.3 mg/dL (8.5-10.1); Carbon Dioxide 29 mmol/L (21.0-32.0); Chloride 105 mmol/L (98-107); Glucose 80 mg/dL (74-106); Sodium 143 mmol/L (136-145)
[2019-07-21 21:42] LABS: Anion Gap 14.1 mEq/L (5-15); Blood Urea Nitrogen 21 mg/dL (7-18); Calcium 9.2 mg/dL (8.5-10.1); Carbon Dioxide 27 mmol/L (21.0-32.0); Chloride 105 mmol/L (98-107); Glucose 78 mg/dL (74-106); Sodium 142 mmol/L (136-145)
--- NOTE | 2019-07-22 07:18 | History & Physical Report ---
*Admission Date: 07/21/19 *Chief complaint: Chest pain *History of present illness: 68-year-old male with history of hypertension and TIA presented to the emergency department after an episode of left-sided chest pain lasting approximately 20 minutes. Patient's pain resolved by the time he arrived at the emergency department and he almost went back home but decided to stay for evaluation. Chest pain had associated nausea, diaphoresis and numbness of the left arm. The numbness in the left arm also lasted 20 minutes before resolving spontaneously without intervention. Patient has hypertension, history of TIA and is a smoker. He was admitted for rule out of myocardial infarction. Troponins were negative overnight. [facility] History I have reviewed the patient's past medical history: Yes Medical History: Reports:: Hyperlipidemia, Hypertension, Transient Ischemic Attacks (TIA) Denies:: Cancer, Diabetes Mellitus Type 1, Diabetes Mellitus Type 2, MRSA *Have you ever received a pneumonia vaccine?: No *Have you received a flu vaccine this season?: No Laterality Cases: Bilateral: Tonsillectomy Other Surgeries: Yes: Colon Resection (IN 2017) Amputation: No Fractures: No - *Social History Educational Level: Completed High School Smoking Status: Current every day smoker Tobacco Type: cigarettes # Packs/Day (cigarettes): 1 #Yrs smoked (if former smoker): 50 Alcohol Intake: never Substance Use Type: marijuana Last Used Substance: days (ago) *Occupational Status:: retired Housing: house Household Members: spouse *Travel in the last 8 weeks: None Family Hx:: Coronary Artery Disease, Diabetes, Heart Attack, Hypertension, Stroke, Tuberculosis Review of Systems - Review of Systems Review of systems:: pertinent systems reviewed and negative unless documented below - Constitutional Denies body ache(s), Denies chills - Eyes Denies blurry vision - *Cardiovascular Reports chest pain, Reports chest pain at rest, Reports excessive sweating, Denies chest pain with activity, Denies shortness of breath, Denies shortness of breath with activity, Denies generalized swelling, Denies lightheadedness, Denies shortness of breath when lying down, Denies rapid, pounding, or irregular heartbeat, Denies shortness of breath causing sudden awakening, Denies radiating jaw, neck or arm pain, Denies fast heart rate, Denies slow heart rate - *Gastrointestinal Denies abdominal pain - *Genitourinary Denies difficulty urinating - *Neurologic Denies headache(s) Meds Home Medications Medication Instructions Recorded Confirmed Type Buspirone HCl [Buspar 10mg 10 mg PO BID 06/05/18 07/21/19 History tablet] Atorvastatin Calcium [Atorvastatin 10 mg PO DAILY 10/12/18 07/21/19 History 10mg Tab] Amlodipine Besylate [Norvasc 10mg 10 mg PO DAILY 07/21/19 07/21/19 History tablet] Prazosin HCl [Minipres 1mg capsule] 1 mg PO DAILY 07/21/19 07/21/19 History Allergies Allergy/AdvReac Type Severity Reaction Status Date / Time Penicillins [PENICILLINS] Allergy Unknown Verified 10/12/18 22:10 Sulfa (Sulfonamide Allergy Unknown Verified 10/12/18 22:10 Antibiotics) [SULFA (SULFONAMIDE ANTIBIOTICS)] Exam Vital signs and Labs for Last 24 Hours: Temp Pulse Resp BP Pulse Ox 97.7 F 60 16 127/75 96 07/22/19 03:57 07/22/19 04:00 07/22/19 03:57 07/22/19 03:57 07/22/19 03:57 Laboratory Results - last 24 hr 07/21/19 18:10: WBC 9.8, RBC 4.44 L, Hgb 14.7, Hct 43.1, MCV 97.2 H, MCH 33.1 H, MCHC 34.0, RDW 13.0, Plt Count 217, MPV 9.1, Neut % (Auto) 69.1, Lymph % (Auto) 24.4, [place] % (Auto) 5.1, Eos % (Auto) 1.1, Baso % (Auto) 0.4, Neut # (Auto) 6.7, Lymph # (Auto) 2.4, [place] # (Auto) 0.5, Eos # (Auto) 0.1, Baso # (Auto) 0.0 07/21/19 18:10: Sodium 143, Potassium 4.0, Chloride 105, Carbon Dioxide 29, Anion Gap 13.0, BUN 23 H, Creatinine 1.71 H, Estimated Creat Clear 36, Estimated GFR 40 L, Est GFR ( Amer) 48 L, Glucose 80, Calcium 9.3, Troponin I < 0.02 07/21/19 18:10: D-Dimer < 100 07/21/19 18:10: Lipase 179 07/21/19 21:10: Sodium 142, Potassium 4.1, Chloride 105, Carbon Dioxide 27, Anion Gap 14.1, BUN 21 H, Creatinine 1.50 H, Estimated Creat Clear 44, Estimated GFR 46 L, Est GFR ( Amer) 56 L, Glucose 78, Calcium 9.2, Troponin I < 0.02 07/21/19 23:59: Troponin I < 0.02 07/22/19 03:00: Troponin I < 0.02 I & O for Last 24 hours: Intake & Output 07/19/19 07/20/19 07/21/19 07/22/19 11:59 11:59 11:59 11:59 Intake Total 633 / 633 Balance 633 / 633 Weight 148 lb 8 oz Narrative: Patient is resting comfortably in bed this morning. HEENT exam is grossly normal. Neck has no jugular venous distention or carotid bruits. Lungs are clear. Heart has a regular rate and rhythm. Abdomen is thin and soft. Extremities have no edema. Neurologically there is no deficit. Skin has multiple tattoos Assessment and Plan (1) Chest pain Current visit: Yes Status: Acute Qualifiers: Chest pain type: precordial pain Qualified Code(s): R07.2 - Precordial pain Category: Medical Code(s): R07.9 - Chest pain, unspecified Patient ruled out for OK. Plan for Myoview stress test today. (2) Hypertension Current visit: Yes Status: Acute Category: Medical Code(s): I10 - Essential (primary) hypertension (3) Cigarette smoker Current visit: Yes Status: Acute Category: Medical Code(s): F17.210 - Nicotine dependence, cigarettes, uncomplicated
--- NOTE | 2019-07-22 07:21 | Pharmacy Consult Notes ---
[facility] Pharmacy VTE Monitoring - Patient Demographics Admission date: 07/21/19 Report Date: 07/22/19 Time: 07:21 Allergies/Adverse Reactions: Patient Allergies Penicillins [PENICILLINS] Allergy (Unknown, Verified 10/12/18 22:10) Sulfa (Sulfonamide Antibiotics) [SULFA (SULFONAMIDE ANTIBIOTICS)] Allergy (Unknown, Verified 10/12/18 22:10) Height: 1.7 m Weight: 67.358 kg Patient Problems: Current Active Problems Chest pain (Acute) Hypertension (Acute) Cigarette smoker (Acute) - VTE Risk Labs: VTE Related Lab Results Hgb 14.7 g/dL (14.1-18.0) 07/21/19 18:10 Hct 43.1 % (42.0-52.0) 07/21/19 18:10 Plt Count 217 K/mm3 (142-424) 07/21/19 18:10 BUN 21 mg/dL (7-18) H 07/21/19 21:10 Creatinine 1.50 mg/dL (0.70-1.30) H 07/21/19 21:10 Estimated Creat Clear 44 mL/min (50-200) 07/21/19 21:10 - Prophylaxis VTE Prophylaxis Ordered?: Yes Types of VTE Prophylaxis: TEDS Knee High Location of Applied Device: Bilateral Lower Extremeties - VTE Diagnosis Confirmed Treatment or plan recommended: Continue Current Treatment
--- NOTE | 2019-07-22 15:17 | Consult Report ---
History of Present Illness Consult date: 07/22/19 Consult reason: chest pain Chief complaint: chest pain and shortness of breath. Additional Medical History:: 1. Typical Angina (07/22/19) a. Negative troponins 2. Abnormal nuclear stress test (07/22/19) a. Preliminary report suggest inferior-anterior redistribution. Possible RCA lesion noted. 3. Hypertension a. Controlled. 4. History of TIA 5. Tobacco abuse a. Currently smokes 1 pack per day. 6. COPD 7. Hyperlipidemia a. No LDL on file. LDL goal<55. Pt is on a statin. History of present illness: 68 year old male presented to the ED last evening with chest pain. Pt stated while sitting at home, he became to experience left sided chest discomfort. Pt very vague on describing his chest pain/discomfort. Pt stated by the time her arrived to the ED, his chest pain had resolved. Pt stated he had only experienced one episode of this chest discomfort. Pt stated shortness of breath and nausea accompanying the chest pain, which resolved when the chest pain resolved. Pt denies chest pain, tightness or pressure. Denies shortness of breath. Denies nausea or vomiting. Pt denies any history of Coronary Artery Disease. Pt does have history of COPD, Hypertension and Hyperlipidemia. Pt continues to smoke 1 shlomo per day. Initial chest pain protocol was initiated in the ED. Troponins and Cardiac serial enzymes were negative. Chest xray revealed Chronic findings of COPD. EKG revealed sinus rhythm with heart rate of 80bpm. Pt underwent nuclear stress testing this am. Preliminary report revealed inferior-anterior re-distribution, possible RCA lesion. Plan of care was discussed with Dr. Carter and Dr. Hines. Recommend heart catheterization due to angina and abnormal findings on stress test. Discussed with pt the benefits and risk of heart catheterization. Pt is agreeable. Pt is wanting to be discharged home and return in am for his heart catheterization. Recommend obtaining Echocardiogram to assess LV function and valve status. Thank you in letting Cardiology participate in the care of this pt. [facility] History Medical History: Reports:: Hyperlipidemia, Hypertension, Transient Ischemic Attacks (TIA) Denies:: Cancer, Diabetes Mellitus Type 1, Diabetes Mellitus Type 2, MRSA *Have you ever received a pneumonia vaccine?: No *Have you received a flu vaccine this season?: No Laterality Cases: Bilateral: Tonsillectomy Other Surgeries: Yes: Colon Resection (IN 2017) Amputation: No Fractures: No - *Social History Educational Level: Completed High School Smoking Status: Current every day smoker Tobacco Type: cigarettes # Packs/Day (cigarettes): 1 #Yrs smoked (if former smoker): 50 Alcohol Intake: never Substance Use Type: marijuana Last Used Substance: days (ago) *Occupational Status:: retired Housing: house Household Members: spouse *Travel in the last 8 weeks: None Family Hx:: Coronary Artery Disease, Diabetes, Heart Attack, Hypertension, Stroke, Tuberculosis Meds Home Medications Medication Instructions Recorded Confirmed Type Buspirone HCl [Buspar 10mg 10 mg PO BID 06/05/18 07/21/19 History tablet] Atorvastatin Calcium [Atorvastatin 10 mg PO DAILY 10/12/18 07/21/19 History 10mg Tab] Amlodipine Besylate [Norvasc 10mg 10 mg PO DAILY 07/21/19 07/21/19 History tablet] Prazosin HCl [Minipres 1mg capsule] 1 mg PO DAILY 07/21/19 07/21/19 History Allergies Allergy/AdvReac Type Severity Reaction Status Date / Time Penicillins [PENICILLINS] Allergy Unknown Verified 10/12/18 22:10 Sulfa (Sulfonamide Allergy Unknown Verified 10/12/18 22:10 Antibiotics) [SULFA (SULFONAMIDE ANTIBIOTICS)] Review of Systems - Review of Systems Review of systems:: pertinent systems reviewed and negative unless documented below - Constitutional Reports fatigue, Reports weakness - *Cardiovascular Reports chest pain, Reports shortness of breath, Denies irregular heart rhythm, Denies leg swelling, Denies rapid, pounding, or irregular heartbeat, Denies radiating jaw, neck or arm pain, Denies fast heart rate, Denies slow heart rate, Denies fainting - *Respiratory Reports shortness of breath, Reports shortness of breath with activity, Denies change in phlegm color, Denies chest congestion, Denies cough, Denies stridor, Denies wheezing - *Gastrointestinal Denies abdominal pain, Denies belching - *Musculoskeletal Denies abnormal walking, Denies muscle weakness - Integumentary/Breasts Denies acne, Denies rash, Denies skin ulcer - *Neurologic Denies abnormal walking, Denies dizziness, Denies headache(s), Denies seizure- like activity, Denies dizziness - Psychiatric Denies abnormal sleep pattern, Denies behavioral changes, Denies thoughts of hurting/killing yourself, Denies tactile hallucinations - Endocrine Denies cold intolerance, Denies excessive sweating, Denies rapid, pounding, or irregular heartbeat Exam Vital signs and Labs for Last 24 Hours: Temp Pulse Resp BP Pulse Ox 98.5 F 73 18 122/72 98 07/22/19 12:00 07/22/19 12:00 07/22/19 12:00 07/22/19 12:00 07/22/19 12:00 Laboratory Results - last 24 hr 07/21/19 18:10: WBC 9.8, RBC 4.44 L, Hgb 14.7, Hct 43.1, MCV 97.2 H, MCH 33.1 H, MCHC 34.0, RDW 13.0, Plt Count 217, MPV 9.1, Neut % (Auto) 69.1, Lymph % (Auto) 24.4, [place] % (Auto) 5.1, Eos % (Auto) 1.1, Baso % (Auto) 0.4, Neut # (Auto) 6.7, Lymph # (Auto) 2.4, [place] # (Auto) 0.5, Eos # (Auto) 0.1, Baso # (Auto) 0.0 07/21/19 18:10: Sodium 143, Potassium 4.0, Chloride 105, Carbon Dioxide 29, Anion Gap 13.0, BUN 23 H, Creatinine 1.71 H, Estimated Creat Clear 36, Estimated GFR 40 L, Est GFR ( Amer) 48 L, Glucose 80, Calcium 9.3, Troponin I < 0.02 07/21/19 18:10: D-Dimer < 100 07/21/19 18:10: Lipase 179 07/21/19 21:10: Sodium 142, Potassium 4.1, Chloride 105, Carbon Dioxide 27, Anion Gap 14.1, BUN 21 H, Creatinine 1.50 H, Estimated Creat Clear 44, Estimated GFR 46 L, Est GFR ( Amer) 56 L, Glucose 78, Calcium 9.2, Troponin I < 0.02 07/21/19 23:59: Troponin I < 0.02 07/22/19 03:00: Troponin I < 0.02 I & O for Last 24 hours: Intake & Output 07/19/19 07/20/19 07/21/19/09/19 23:59 23:59 23:59 23:59 Intake Total 633 / 633 Balance 633 / 633 Weight 150 lb 4 oz 148 lb 8 oz - Constitutional no acute distress, thin, cooperative - *Routine Neck Exam Present: supple, full ROM, normal carotid upstroke. Absent: JVD, carotid bruit, lymphadenopathy - Routine Chest/Breast/Axilla Exam Chest wall: Present: tenderness. Absent: mass, pacemaker - *Routine Respiratory Exam Present: CTA bilaterally. Absent: respiratory distress, wheezes, crackles - *Routine Cardiovascular Exam Present: RRR, Normal S1, Normal S2. Absent: murmur, gallop, click, bradycardia, tachycardia, irregular rhythm, JVD - *Routine Abdominal Exam Present: soft, normoactive bowel sounds. Absent: tenderness, guarding, firm - *Routine Extremities Exam Present: full ROM, pulses intact, normal capillary refill. Absent: cyanosis, clubbing, edema, calf tenderness - Routine Back/Spine/Pelvis Exam Back/Spine: Present: full ROM. Absent: CVA tenderness - *Routine Skin Exam Present: intact, dry, warm. Absent: rash - *Routine Neurological Exam Present: alert, oriented X3, CN II-XII intact, normal reflexes, moving all extremities, normal speech. Absent: tremors - Routine Psychiatric Exam Present: normal affect, normal thought process, cooperative. Absent: suicidal ideation Assessment and Plan (1) Chest pain Current visit: Yes Status: Acute Qualifiers: Chest pain type: precordial pain Qualified Code(s): R07.2 - Precordial pain Category: Medical Code(s): R07.9 - Chest pain, unspecified (2) Hypertension Current visit: Yes Status: Acute Category: Medical Code(s): I10 - Essential (primary) hypertension (3) Cigarette smoker Current visit: Yes Status: Acute Category: Medical Code(s): F17.210 - Nicotine dependence, cigarettes, uncomplicated (4) Hyperlipemia Current visit: Yes Status: Acute Category: Medical Code(s): E78.5 - Hyperlipidemia, unspecified (5) Abnormal cardiovascular stress test Current visit: Yes Status: Acute Category: Medical Code(s): R94.39 - Abnormal result of other cardiovascular function study - Assessment and plan all Dx Assessment and Plan for all problems:: Plan: 1. Obtain Echocardiogram to assess LV function and valve status. (Outpatient bases) 2. Schedule pt for Left heart catheterization in am (oupatient bases) due to angina and abnormal stress. 3. Continue current medication regimen as ordered by PCP. 4. Tobacco cessation advised and recommended. 5. LDL goal<55. 6. Follow up with Cardiology clinic in one week after Left heart catheterization or sooner if symptoms develop/persist.
--- NOTE | 2019-07-22 16:46 | Discharge Summary ---
General - General Admission date:: 07/21/19 Discharge date: 07/22/19 HPI HPI: 68-year-old male with history of hypertension and TIA presented to the emergency department after an episode of left-sided chest pain lasting approximately 20 minutes. Patient's pain resolved by the time he arrived at the emergency department and he almost went back home but decided to stay for evaluation. Chest pain had associated nausea, diaphoresis and numbness of the left arm. The numbness in the left arm also lasted 20 minutes before resolving spontaneously without intervention. Patient has hypertension, history of TIA and is a smoker. He was admitted for rule out of myocardial infarction. Troponins were negative overnight. Hospital Course Hospital Course: Patient was admitted and ruled out for IL with serial EKG and enzymes. He underwent stress testing on July 22 which was abnormal and suggestive of possible right coronary lesion. Decision was made to proceed with heart catheterization as an outpatient. Patient will undergo left heart catheterization on July 23. He will follow-up in my office at the end of the week Objective Vital signs: Temp Pulse Resp BP Pulse Ox 98.5 F 50 L 18 122/72 98 07/22/19 12:00 07/22/19 16:00 07/22/19 12:00 07/22/19 12:00 07/22/19 12:00 Results Labs on day of discharge: Labs from last 24 hours 07/22/19 07/21/19 07/21/19 03:00 23:59 21:10 WBC RBC Hgb Hct MCV MCH MCHC RDW Plt Count MPV Neut % (Auto) Lymph % (Auto) [place] % (Auto) Eos % (Auto) Baso % (Auto) Neut # (Auto) Lymph # (Auto) [place] # (Auto) Eos # (Auto) Baso # (Auto) D-Dimer Sodium 142 Potassium 4.1 Chloride 105 Carbon Dioxide 27 Anion Gap 14.1 BUN 21 H Creatinine 1.50 H Estimated Creat Clear 44 Estimated GFR 46 L Est GFR ( Amer) 56 L Glucose 78 Calcium 9.2 Troponin I < 0.02 < 0.02 < 0.02 Lipase 07/21/19 07/21/19 07/21/19 18:10 18:10 18:10 WBC RBC Hgb Hct MCV MCH MCHC RDW Plt Count MPV Neut % (Auto) Lymph % (Auto) [place] % (Auto) Eos % (Auto) Baso % (Auto) Neut # (Auto) Lymph # (Auto) [place] # (Auto) Eos # (Auto) Baso # (Auto) D-Dimer < 100 Sodium 143 Potassium 4.0 Chloride 105 Carbon Dioxide 29 Anion Gap 13.0 BUN 23 H Creatinine 1.71 H Estimated Creat Clear 36 Estimated GFR 40 L Est GFR ( Amer) 48 L Glucose 80 Calcium 9.3 Troponin I < 0.02 Lipase 179 07/21/19 18:10 WBC 9.8 RBC 4.44 L Hgb 14.7 Hct 43.1 MCV 97.2 H MCH 33.1 H MCHC 34.0 RDW 13.0 Plt Count 217 MPV 9.1 Neut % (Auto) 69.1 Lymph % (Auto) 24.4 [place] % (Auto) 5.1 Eos % (Auto) 1.1 Baso % (Auto) 0.4 Neut # (Auto) 6.7 Lymph # (Auto) 2.4 [place] # (Auto) 0.5 Eos # (Auto) 0.1 Baso # (Auto) 0.0 D-Dimer Sodium Potassium Chloride Carbon Dioxide Anion Gap BUN Creatinine Estimated Creat Clear Estimated GFR Est GFR ( Amer) Glucose Calcium Troponin I Lipase DS: Diagnosis - Discharge Diagnosis (1) Chest pain Status: Acute (2) Hypertension Status: Acute (3) Cigarette smoker Status: Acute (4) Hyperlipemia Status: Acute (5) Abnormal cardiovascular stress test Status: Acute Discharge Plan - Patient Discharge Instructions ACTIVITY: Continue current activity DIET: continue same diet Patient Instructions: Angina, DI for Angina, DI for Chest Pain - Follow up Plan Follow up with: Raoul Hines MD [Staff Physician] - 1 day Byron Carter MD [Primary Care Provider] - 07/26/19 Disposition: Home, Self-Snf Medications: Home Medications Medication Instructions Recorded Confirmed Type Buspirone HCl [Buspar 10mg 10 mg PO BID 06/05/18 07/21/19 History tablet] Atorvastatin Calcium [Atorvastatin 10 mg PO DAILY 10/12/18 07/21/19 History 10mg Tab] Amlodipine Besylate [Norvasc 10mg 10 mg PO DAILY 07/21/19 07/21/19 History tablet] Prazosin HCl [Minipres 1mg capsule] 1 mg PO DAILY 07/21/19 07/21/19 History Prescriptions/Medication Reconciliation: Continued Atorvastatin Calcium [Atorvastatin 10mg Tab] 10 mg PO DAILY Prazosin HCl [Minipres 1mg capsule] 1 mg PO DAILY Buspirone HCl [Buspar 10mg tablet] 10 mg PO BID Amlodipine Besylate [Norvasc 10mg tablet] 10 mg PO DAILY - Problem Reconciliation Problems Reviewed?: Yes
--- NOTE | 2019-07-22 19:37 | Cardiology Report ---
APPROVED REPORT Exam: Pharmacologic Technologist: Tasia Bourgeois Ht: 5 ft 7 in Wt: 148 lbs BSA: 1.78 m2 HR: 66 bpm BP: 137/73 mmHg Indications: Chest pain Medical History Medications: Amlodipine,,,,, Atorvastatin,,,,, Buspirone,,,,, PraZOSIN,,,,, Stress Test Details Test: LEXISCAN HR Resting HR: 68 bpmMax Heart Rate (APMHR): 150 bpm Max HR Achieved: 86 bpmTarget HR (85% APMHR): 127 bpm % of APMHR: 57 Recovery HR: 69 bpm BP Resting BP: 137/73 mmHg Max BP: 137/73 mmHg Recovery BP: 98.0/62.0 mmHg ECG Clinical Exercise duration: 04:03 min Highest Stage Achieved: Exercise capacity: 1.0 METs Stress ECG Conclusion RESTING ECG: SINUS RHYTHM - ABNORMAL LEXISCAN PORTION COMPLETED. COMPLAINED OF "LIGHTHEADEDNESS' AT PEAK INFUSION. PATIENT BECAME HYPOTENSIVE AT PEAK INFUSION. SYMPTOMS: NO CHEST PAIN, NO SHORTNESS OF BREATH. PATIENT WAS LIGHTHEADED AT PEAK INFUSION. RESOLVED IN RECOVERY. ARRHYTHMIAS/ECTOPY: OCCASIONAL PVC ST-T CHANGES: LESS THAN 1.5mm ST DEPRESSION CONCLUSION: IMAGES TO FOLLOW Test Summary JVOZDNTX05:00..75.72/ 46.. REST01:55..68.137/ 73.. Stage 101:00..86.... Stage 201:00..81.96/ 59.. Stage 301:00..76.85/ 52.. Stage 401:00..74.... Stage 401:03..74...Stop exercise at 04:03 CDCAFRNG17:00..72.... ZYPCZEMN16:00..74.... EFXYINCO50:00..69.72/ 46.. VCOJAAVP11:00..75.72/ 46.. LKVOGGPF50:00..71.72/ 46.. EJEDGGRN34:00..73.80/ 50.. PLQBUMQG17:00..71.80/ 50.. CYVRJOOT94:00..71.98/ 62.. AMDDKTCR80:00..73.98/ 62.. ZHBKCSVI62:40..71.108/ 70.. Electronically signed by : Emmanuel Pisano, 07/22/2019 19:37:06
--- NOTE | 2019-07-23 19:59 | Electrocardiograph Report ---
APPROVED REPORT Exam: Resting ECG HR:63 bpm ECG Measurements Heart Rate 63 AXES TN 172 P 57 QRSd 84 QRS 70 QT 390 T61 QTc 399 <Conclusion> Normal sinus rhythm Normal ECG Electronically signed by : Byron Loredo, 07/23/2019 19:59:10
== END 2019-07-22 17:20 | disposition home or self-care (01) ==
LOC: ER 18:08 → 2ND 18:08
PROVIDERS: ADMIT Internal Medicine Adolescent Medicine; ATTEND Family Medicine
DX: R94.39 Abnormal result of other cardiovascular function study; E78.49 Other hyperlipidemia; R07.9 Chest pain, unspecified; I10 Essential (primary) hypertension; F17.210 Nicotine dependence, cigarettes, uncomplicated
CPT/HCPCS: 36415; 71020; 71046; 78452; 80048; 83690; 84484; 85025; 85378; 93005; 93017; 99284; A9502; G0378; J2785

== ENCOUNTER → 2019-08-09 12:19 | Outpatient (CLI) | payer OTHER, SELFPAY ==
--- NOTE | 2019-08-09 12:22 | CA_ITS ---
APPROVED REPORT Electrician: CIERRA Laterality: Bilateral Study Quality: Good Indications: rosemary Risk Factors Hypertension: Smoking Doppler Spectral Velocity Analysis ECA (R) 105.00/ cm/s ECA (L) 107.00/ cm/s dICA (R) 74.80/27.70 cm/s dICA (L) 99.20/31.40 cm/s Jonathan (R) 81.10/25.10 cm/s Jonathan (L) 82.70/27.00 cm/s pICA (R) 56.60/15.70 cm/s pICA (L) 62.30/19.90 cm/s dCCA (R) 102.00/21.20 cm/s dCCA (L) 83.10/21.60 cm/s pCCA (R) 108.00/24.40 cm/s pCCA (L) 126.00/25.80 cm/s Vert (R) 56.60/ cm/s Vert (L) 43.30/ cm/s ICA/CCA 0.80 ICA/CCA 1.19 Findings Duplex evaluation demonstrates stenosis of the right proximal internal carotid artery in the range of 20-49% with PSV <140 cm/sec, EDV <100 cm/sec, and IC/CC Ratio <4.0.Duplex evaluation demonstrates stenosis of the left proximal internal carotid artery <20% with PSV <140 cm/sec, EDV <100 cm/sec, and IC/CC Ratio <4.0. Conclusion Duplex evaluation demonstrates stenosis of the right proximal internal carotid artery in the range of 20-49% with PSV <140 cm/sec, EDV <100 cm/sec, and IC/CC Ratio <4.0.Duplex evaluation demonstrates stenosis of the left proximal internal carotid artery <20% with PSV <140 cm/sec, EDV <100 cm/sec, and IC/CC Ratio <4.0. Electronically signed by : Yonas Morales MD 08/09/2019 14:32:50
== END ==
PROVIDERS: PCP Family Medicine; Visit Provider Urology
DX: I73.9 Peripheral vascular disease, unspecified (principal); E78.5 Hyperlipidemia, unspecified; F17.210 Nicotine dependence, cigarettes, uncomplicated; I10 Essential (primary) hypertension; I25.10 Atherosclerotic heart disease of native coronary artery without angina pectoris; I27.20 Pulmonary hypertension, unspecified; I51.89 Other ill-defined heart diseases; I77.9 Disorder of arteries and arterioles, unspecified
CPT/HCPCS: 93880

== ENCOUNTER → 2019-08-13 13:24 | Outpatient (CLI) | payer OTHER, SELFPAY ==
--- NOTE | 2019-08-13 | US_ITS ---
APPROVED REPORT Exam Type: Lower Extremity Segmental Pressures Showroom Sales Consultant: Ros Aguilar RT(R) Indications Claudication: Bilaterally Risk Factors Hypertension CAD Hyperlipidemia Current Smoker Pressures/Indices Right Indices Left Indices Brachial 133.00 mmHg Brachial 132.00 mmHg Low Thigh 144.00 mmHg 1.08 Low Thigh 113.00 mmHg 0.85 Calf 157.00 mmHg 1.18 Calf 112.00 mmHg 0.84 Ankle(PT) 159.00 mmHg 1.20 Ankle(PT) 120.00 mmHg 0.90 Ankle(DP) 161.00 mmHg 1.21 Ankle(DP) 110.00 mmHg 0.83 Digit 148.00 mmHg 1.11 Digit 86.00 mmHg 0.65 Post Exercise Pressures/Indices Treadmill 5.00 minute(s). Max Speed: 2.80 Max Incline: 10.00 Right Left 159.00 mmHg Brachial 159.00 mmHg 161.00 mmHg Ankle (PT) 61.00 mmHg 1.01 BRYANNA 0.38 Patient experienced bilateral calf tightness and pain at 1 minute greater than 5 on pain scale. These symptoms continued but did not worsen throughout the five minute exercise. Conclusion BRYANNA dropped from 0.9 to 0.4 with exercise indicating arterial stenosis in the left lower extremity which may be confirmed with CTA if desired Electronically signed by : Yonas Morales MD 08/19/2019 19:24:01
== END ==
PROVIDERS: PCP Family Medicine; Visit Provider Family Medicine
DX: I73.9 Peripheral vascular disease, unspecified (principal)
CPT/HCPCS: 93924

== ENCOUNTER 2020-04-07 08:00 | Outpatient (RCR) | payer OTHER, SELFPAY ==
--- NOTE | 2020-04-01 11:43 | HMH.PTOPEV ---
PT Outpatient Evaluation Rehab PT Outpatient Evaluation Start: 04/01/20 11:01 Freq: Status: Active Protocol: Document 04/01/20 11:30 DEVIN (Rec: 04/01/20 11:41 DEVIN [id number]) Electronically Signed By Marco Crawford, PT 04/01/20 11:30 Outpatient Therapy Subjective History Subjective History Patient is a 69 year old male presenting to outpatient PT with reports of sub-acute cervical spine pain with radicular symptoms to L shoulder and L hand C6 distribution. Symptoms started approx 2 months ago. No recent imaging to report. Comorbidities include hx of HTN, HLD and colon resection. Chief Complaint Pain,Stiff,Paresthesia, Weakness Symptom Type Ache,Tingling Symptoms Relieved By Ice,Prescription Meds Prior Functional Limitations None Current Functional Limitations Reaching,Lifting,Housework, Sleeping,Sitting,Recreation Activity Symptom Description Constant but Variable Level of pain today (0-10) 5 Pain scale - at its best (0-10) 2 Pain scale - at its worst (0-10) 8 Cervical Eval Palpation Cervical Muscles L CT Junction,L Upper Trapezius Cervical/Thoracic Palpation Findings Tenderness Posture Head/C-Spine Posture Sitting Position C-Spine Flattened Head/C-Spine Posture Standing Position C-Spine Flattened Flexibility Deficits Upper Trapezius Muscle Length (R) Moderate Tightness,(L) Moderate Tightness Levaetor Scapulae Muscle Length (R) Moderate Tightness,(L) Moderate Tightness Scalene Group Muscle Length (R) Moderate Tightness,(L) Moderate Tightness Pectoralis Minor Muscle Length (R) Moderate Tightness,(L) Moderate Tightness Passive Joint Mobility Cervical PIVM Dec: R OA L OA R AA L AA R C2/3 L C2/3 R C3/4 L C3/4 R C4/5 L C4/5 R C5/6 L C5/6 R C6/7 L C6/7
== END 2020-04-07 08:05 | disposition home or self-care (01) ==
LOC: PT 08:00
PROVIDERS: Visit Provider Family Medicine
DX: M54.12 Radiculopathy, cervical region (principal)
CPT/HCPCS: 97010; 97012; 97014; 97110; 97163; G0283

== ENCOUNTER 2022-09-26 06:05 | Emergency (ER) | payer OTHER, MEDICARE, SELFPAY ==
[2022-09-26] VITALS (10 sets, daily range): BP systolic 113–141; BP diastolic 70–78; PULSE 60–75; RESP 18–20; TEMP 36.6–36.7; O2SAT 96–99; BMI 19.3
--- NOTE | 2022-09-26 06:59 | CT_ITS ---
FINAL REPORT TECHNIQUE: After the administration of oral and intravenous contrast, axial images were obtained through the abdomen and pelvis by computed tomography. The study was performed with techniques to keep radiation dose as low as reasonably achievable, (ALARA). Individual dose reduction techniques using automated exposure control or adjustment of mA and/or kV according to the patient's size were employed. CLINICAL HISTORY: left groin pain down leg FINDINGS: Abdomen: The lung bases are clear. The liver parenchyma is homogeneous. The gallbladder is moderately distended. The spleen, pancreas, and adrenals appear unremarkable. There are benign-appearing cysts in both kidneys measuring up to 4.0 x 3.2 cm. There seems to be a general diffuse prominence in the gastric mucosa of uncertain significance. The aorta is normal in caliber. There is no free fluid or adenopathy. Pelvis: There is a large amount of stool with throughout the colon. There are postoperative changes in the right hemipelvis. The urinary bladder is unremarkable. There is no free fluid or adenopathy. There are moderate vascular calcifications in the iliac vessels. IMPRESSION: No acute intra-abdominal process. General diffuse prominence in the gastric mucosa of uncertain significance. Benign appearing renal cysts. Reviewed, Interpreted and Dictated by Reginald Yu MD Transcribed by Lala Sloan Authenticated and [facility]
--- NOTE | 2022-09-26 06:59 | CT_ITS ---
FINAL REPORT TECHNIQUE: Axial imaging of the lumbar spine was obtained without contrast. Sagittal and coronal reformatted images were also obtained and reviewed. This study was performed with techniques to keep radiation doses as low as reasonably achievable (ALARA). Individualized dose reduction techniques using automated exposure control or adjustment of mA and/or kV according to the patient''s size were employed. CLINICAL HISTORY: left groin pain down leg FINDINGS: There is no fracture. The vertebral alignment is normal. There are mild hypertrophic changes of degenerative disc disease throughout the lumbar spine.There is no evidence of significant central canal stenosis. L1-L2: No evidence of central canal stenosis or neural foraminal narrowing. L2-L3: There is a mild diffuse disc bulge with mild bilateral neural foraminal narrowing. No evidence of central canal stenosis. L3-L4: There is a moderate diffuse disc bulge with endplate hypertrophy and mild to moderate bilateral neural foraminal narrowing. No evidence of central canal stenosis. L4-L5: There is a moderate diffuse disc bulge with endplate hypertrophy and moderate bilateral neural foraminal narrowing. No evidence of central canal stenosis. L5-S1: No evidence of central canal stenosis or neural foraminal narrowing. IMPRESSION: Diffuse disc bulges at L2-3, L3-4 and L4-5 with bilateral neural foraminal narrowing. Reviewed, Interpreted and Dictated by Reginald Yu MD Transcribed by Lala Sloan Authenticated and . [facility]
--- NOTE | 2022-09-26 07:21 | PC.NURSE ---
IV established and blood sent to the lab
[2022-09-26 07:26] LABS: Basophils # 0.1 K/mm3 (0-0.2); Basophils % 0.7 % (0.1-2.0); Eosinophils # 0.3 K/mm3 (0.0-0.4); Eosinophils % 2.6 % (0.1-12.0); Hematocrit 44.6 % (42.0-52.0); Hemoglobin 14.7 g/dL (14.1-18.0); Lymphocytes # 1.8 K/mm3 (0.7-4.5); Lymphocytes % 17.9 % (10-50); Mean Corpuscular HGB Conc 32.9 g/dL (31.8-35.4); Mean Corpuscular Hemoglobin 33.5 pg (27.0-31.2); Mean Corpuscular Volume 101.9 fl (80-94); Mean Platelet Volume 8.5 fl (7.4-10.4); Monocytes # 0.6 K/mm3 (0.1-1.0); Monocytes % 5.7 % (1.7-9.3); Neutrophils # 7.4 K/mm3 (1.8-7.8); Neutrophils % 73.2 % (37.0-80.0); Platelet Count 234 K/mm3 (142-424); Red Blood Count 4.38 M/mm3 (4.60-6.20); Red Cell Distribution Width 13.3 % (11.5-17.5); White Blood Count 10.1 K/mm3 (4.8-10.8)
[2022-09-26 07:37] LABS: Alanine Aminotransferase 29 U/L (12-78); Albumin Level 4.2 g/dl (3.5-5.0); Albumin/Globulin Ratio 1.6 (1.1-1.8); Alkaline Phosphatase 141 U/L (38-126); Anion Gap 14.1 mEq/L (5-15); Aspartate Amino Transferase 41 U/L (17-59); Bilirubin,Total 0.5 mg/dl (0.2-1.3); Blood Urea Nitrogen 20 mg/dl (9-20); Calcium 9.5 mg/dl (8.4-10.2); Carbon Dioxide 28 mmol/L (22.0-30.0); Chloride 103 mmol/L (98-107); Creatinine Clearance Estimated 42 mL/min (50-200); Estimated Glomerular Filt Rate 59 ml/min (>60); GFR (African American) 72 ML/MIN (>60); Globulin 2.6 g/dL (1.3-3.2); Glucose 108 mg/dl (74-100); Potassium 4.1 mmoL/L (3.5-5.1); Sodium 141 mmol/L (136-145); Total Protein,Serum 6.8 g/dl (6.3-8.2)
--- NOTE | 2022-09-26 07:42 | HMH.EDEXTP ---
Discharge Plan Disposition Patient Disposition: Still a Patient Chief Complaint: Extremity Problem,Nontraumatic Prescriptions Prescriptions: No Action buspirone 10 MG tablet 10 mg PO BID atorvastatin 10 MG tablet 10 mg PO DAILY amlodipine 10 MG tablet 10 mg PO DAILY cilostazol 100 mg tablet 100 mg PO BID Label Comments: TAKE 1 TABLET BY MOUTH TWICE DAILY omeprazole 40 mg capsule,delayed release(DR/EC) 40 mg PO DAILY Label Comments: TAKE 1 CAPSULE BY MOUTH ONCE DAILY Referrals Follow up/Referrals: Byron Carter MD [Primary Care Provider] - See instructions Clinical Impressions Clinical Impression: Lumbar radicular pain Discharge ED Provider: Gilbert Todd Extremity Problem HPI General Chief complaint: Extremity Problem,Nontraumatic Stated complaint: Severe pain in left leg Time Seen by Provider: 09/26/22 07:00 Mode of Arrival: Family Vehicle Source of Information: Patient Limitations: No Limitations Description of Symptoms (Recalled from ER Triage Doc. by RN): Pt c/o severe LLE pain. States he was having pain in his left groin for 2-3 days but this morning the pain had radiates to posterior knee. States he was told he had blood clots in his leg years ago by Dr. Carter and placed on Cilostazol. He has a hx of claudication. Pulses diminihsed to LLE. No redness or edema present. He has been taking Aleve and Advil. History of Present Illness HPI Narrative: pt with groin pin on lt with radiation to lt lower ext over the last 2 days -pt with hx of pvd - pain worse with movement Complaint: extremity pain Onset (ago): day(s) Consistency: intermittent Location: left and lower extremity Radiation: distal Relieving factors: movement Associated symptoms: denies other symptoms Context: history of peripheral vascular disease Related Data Home Medications Medication Instructions Recorded Confirmed buspirone 10 mg tablet 10 mg PO BID Anxiety 06/05/18 09/26/22 atorvastatin 10 mg tablet 10 mg PO DAILY Cholesterol 10/12/18 09/26/22 amlodipine 10 mg tablet 10 mg PO DAILY Hypertension 07/21/19 09/26/22 cilostazol 100 mg tablet 100 mg PO BID claudication 09/26/22 09/26/22 omeprazole 40 mg capsule,delayed 40 mg PO DAILY GERD 09/26/22 09/26/22 release Allergies Allergy/AdvReac Type Severity Reaction Status Date / Time Penicillins [PENICILLINS] Allergy Unknown Verified 11/18/19 10:19 Sulfa (Sulfonamide Allergy Unknown Verified 11/18/19 10:19 Antibiotics) [SULFA (SULFONAMIDE ANTIBIOTICS)] [facility] Medical History (Updated 09/26/22 @ 08:18 by Ed Correia MD) CAD (coronary artery disease) Cigarette smoker Diastolic dysfunction Hyperlipemia Hypertension Pulmonary HTN Social History Smoking Status: Current every day smoker tobacco type: cigarettes packs per day: 1 second hand exposure: Yes alcohol intake: never substance use type: marijuana current occupational status: retired Travel in the last 8 weeks: Inside the [place] household members: spouse housing: house caffeine: Yes ROS Obtained: Yes All systems reviewed & no additional complaints except as documented Physical Exam General General appearance: alert Head Head exam: normocephalic Eye Eye exam: Present PERRL and EOMI ENT ENT exam: Present mucous membranes moist Neck Neck exam: Present trachea midline Respiratory Respiratory exam: Absent respiratory distress Cardiovascular Cardiovascular exam: Present regular rate Abdominal Exam Abdominal exam: Present soft; Absent tenderness exam: Present other (no def inguinal hernia ); Absent testicular tenderness or scrotal swelling Extremities Exam Extremities exam: Present normal inspection and other (has pulse groin/popliteal and post -tibial - no clinical evid of dvt ) Neurological Exam Neurological exam: Present alert, oriented X3 and CN II-XII intact Psychiatric Psychiatric exam: Prese
--- NOTE | 2022-09-26 07:46 | PC.NURSE ---
PT AMBULATED TO RADIOLOGY
[2022-09-26 08:44] LABS: Erythrocyte Sedimentation Rate 54 mm/hr (0-20)
[2022-09-26 08:55] LABS: Microscopic, Urine URINE MICROSCOPIC (MICROSCOPIC)
[2022-09-26 09:01] LABS: Appearance,Urine CLEAR (Clear); Bilirubin,Urine Negative (Negative); Blood, Urine Negative (Negative); Color,Urine YELLOW (Yellow); Glucose,Urine (UA) Negative (Negative); Ketones,Urine Negative (Negative); Leukocyte Esterase,Urine Negative (Negative); Nitrate,Urine Negative (Negative); Protein,Urine 2+ (Negative); Specific Gravity, Urine 1.015 (1.005-1.030); Urobilinogen,Urine 0.2 EU/dl (0.2)
[2022-09-26 09:30] LABS: Bacteria,Urine Trace /lpf; RBC,Urine Occasional #/hpf (0-3); Squamous Epithelial Cell,Urine Occasional #/hpf (0-5); WBC,Urine Occasional #/hpf (0-3)
--- NOTE | 2022-09-26 09:52 | PC.NURSE ---
Family and pt updated on POC. No new needs at this time
== END 2022-09-26 10:50 | disposition home or self-care (01) ==
PROVIDERS: Emergency Medicine; Emergency Provider Emergency Medicine; PCP Family Medicine
DX: M54.16 Radiculopathy, lumbar region (principal); I27.20 Pulmonary hypertension, unspecified; I11.0 Hypertensive heart disease with heart failure; I50.30 Unspecified diastolic (congestive) heart failure; I25.10 Atherosclerotic heart disease of native coronary artery without angina pectoris; I73.9 Peripheral vascular disease, unspecified; E78.5 Hyperlipidemia, unspecified; F17.200 Nicotine dependence, unspecified, uncomplicated; Z79.52 Long term (current) use of systemic steroids; Z79.899 Other long term (current) drug therapy; Z88.0 Allergy status to penicillin; Z88.2 Allergy status to sulfonamides
CPT/HCPCS: 72131; 74177; 80053; 81001; 85025; 85651; 99285; Q9967

== ENCOUNTER 2025-05-07 08:51 | Outpatient (CLI) | payer OTHER, SELFPAY ==
--- OUTSIDE RECORDS SUMMARY | 2025-05-07 08:56 | XMS_ITS | Clinical Summary ---
Author Organization Healthcare Address [address] [place] [address] Care Team Providers Care Fire And Explosion Investigator Name Role Phone Byron Carter MD Primary Care Provider [phone] Family History Medical History Relation Name Comments Heart attack Mother Relation Name Status Comments Mother Social History Tobacco Use Types Packs/Day Years Used Date Smoking Tobacco: Every Day Alcohol Use Standard Drinks/Week Comments No 0 (1 standard drink = 0.6 oz pur e alcohol) Sex and Gender Information Value Date Recorded Sex Assigned at Not on file Legal Sex Male 6:14 PM EDT Gender Identity Not on file Sexual Orientation Not on file Last Filed Vital Signs Vital Sign Reading Time Taken Comments Blood Pressure - - Pulse - - Temperature - - Respiratory Rate - - Oxygen Saturation - - Inhaled Oxygen Concentration - - Weight 66.3 kg (146 lb 2.6 oz) 09/08/2017 10:37 AM EDT Height 170.2 cm (5' 7 ) 08/04/2017 11:31 AM EDT Body Mass Index 22.89 08/04/2017 11:31 AM EDT Plan of Treatment Health Maintenance Due Date Last Done Comments [facility]-Depression Screening 1948 [facility]-/Child/Adol SDOH Screenings 1950 [facility]- SDOH Screenings 1966 [facility]-Adult SDOH Screenings 1966 [facility]-DTaP,Tdap,and Td Vaccine s (1 - Tdap) 1967 [facility]-Pneumococcal Vaccine: 50 + Years (1 of 1 - PCV) 1998 [facility]-Zoster Vaccines (1 of 2) 1998 [facility]-RSV Vaccine: 60+ Years o r (1 - 1-dose 75+ series) 2023 [id number] Vaccine (1 - 20 24-25 season) 2024 [facility]-Influenza Vaccine ([place] Ended) 2025 HPV Vaccines Aged Out No longer eligi ble based on patient's age to complete this topic [facility]-HIB Vaccines Aged Out No longer e ligible based on patient's age to complete this topic [facility]-Hepatitis A Vaccines Aged Out No longer eligible based on patient's age to complete this topic [facility]-IPV Vaccines Aged Out No longer e ligible based on patient's age to complete this topic [facility]-Rotavirus Vaccines Aged Out No lo nger eligible based on patient's age to complete this topic Care Teams Fire And Explosion Investigator Relationship Specialty Start Date End Date Byron Carter MD [address] [place] [address] PCP - General 03/26/21
--- OUTSIDE RECORDS SUMMARY | 2025-05-07 08:56 | XMS_ITS | Clinical Summary ---
Author Organization [facility] Address [address] [place] [address] Care Team Providers Care Military Source Operations Specialist Name Role Phone Unavailable Primary Care Provider Unavailabl e Allergies Active Allergy Reactions Criticality Noted Date Comments Penicillins 06/10/2011 Sulfamethazine Sodium 06/10/2011 Medications hydrocodone-angela taminophen (VICODIN) 5-500 MG per tablet TAKE 1 TABLET BY MOUTH EVERY NIGHT AT BEDTIME 10 tablet 0 03/16/2012 Active Active Problems Problem Noted Date Diagnosed Date Cigarette smoker 07/01/2011 Plantar fasciitis 07/01/2011 BPH (benign prostatic hyperplasia) 07/01/2011 Hypercholesterolemia 07/01/2011 Sialadenitis 06/10/2011 Lumbar radiculopathy 06/10/2011 Social History Tobacco Use Types Packs/Day Years Used Date Smoking Tobacco: Former Cigarettes Alcohol Use Standard Drinks/Week Comments Not Asked 0 (1 standard drink = 0.6 oz pur e alcohol) Sex and Gender Information Value Date Recorded Sex Assigned at Not on file Legal Sex Male 9:11 AM EST Gender Identity Not on file Sexual Orientation Not on file Last Filed Vital Signs Vital Sign Reading Time Taken Comments Blood Pressure 110/70 07/01/2011 9:08 AM EDT Pulse - - Temperature - - Respiratory Rate - - Oxygen Saturation - - Inhaled Oxygen Concentration - - Weight 68.9 kg (152 lb) 06/10/2011 12:04 PM EDT Height 153 cm (5' 0.25 ) 06/10/2011 12:04 PM EDT Body Mass Index 29.44 06/10/2011 12:04 PM EDT Plan of Treatment Not on file
--- NOTE | 2025-05-07 08:57 | XR_ITS ---
FINAL REPORT CLINICAL HISTORY: pinky FINGER PAIN. patient states pinky sticks out and unable to move finger. FINDINGS: LEFT HAND Three views demonstrate no acute fracture or dislocation. 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 There is severe osteoarthritis of the first carpometacarpal joint. Valgus deformity is seen at the fifth MCP joint without focal bony lesion. 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 A lucent lesion is seen of the fourth distal phalanx, likely enchondroma or less likely aneurysmal bone cyst. IMPRESSION: No acute bony abnormality. Arthritic changes as above. Reviewed, Interpreted and Dictated by Ambrose Grimm MD Transcribed by Fiona Omalley Authenticated and [facility]
== END 2025-05-07 23:59 | disposition home or self-care (01) ==
LOC: RAD 08:54
PROVIDERS: PCP Family Medicine; Visit Provider Family Medicine
DX: M19.042 Primary osteoarthritis, left hand (principal); M18.12 Unilateral primary osteoarthritis of first carpometacarpal joint, left hand
CPT/HCPCS: 73130